=== PATIENT | female | born 1960 | race Caucasian/White ===

== ENCOUNTER 2016-09-05 22:08 | Observation (INO) | payer MEDICARE, MEDICAID ==
[~2016-09-05] VITALS: Ht 170.2 cm; Wt 115.1 kg
[~2016-09-05 22:08] MED LIST: ABILIFY 10MG TA10 MG PO; ABILIFY 15MG TA15 MG PO; ACTOS 15MG TAB15 MG PO; ASPIRIN 32325 MG/TAB PO; ASPIRIN E.C. 8181 MG PO; BISACODYL RC; BYETTA; CALTRATE 600600 MG PO; CEFTIN 250250 MG/TAB PO; CELEXA10 MG; CELEXA10 MG PO; CITALOPRAM20 MG PO; CLARITIN10 MG PO; COLACE 100100 MG/CAP PO; DESYREL 100MG100 MG PO; DESYREL PO; DITROPAN XL15 MG PO; EPIPEN1 MG/ML MR; FISH OIL1000 MG PO; FLONASE NASAL S16 GM NS; FLUTICASON0.05 MG/Ac NS; JANUVIA 100MG100 MG PO; KENALOG0.1% TP; LANTUS SOLOS100 U/ML SC; LANTUS100 U/ML; LEVOTHYROXINE0.05 M1 PO; LIPITOR 80MG80 MG PO; LIPITOR80 MG PO; LISINOPRIL5 MG PO; LITHIUM 30300 MG/CAP PO; LITHIUM 60600 MG/CAP PO; MACROBID 1100 MG/CAP PO; MACRODANTIN50 MG/CA1 PO; METAMUCIL1 PDR PO; METFORMIN1000 MG PO; MIRTAZAPINE15 M1 PO; NIASPAN 500MG500 MG PO; NOVOLOG 100U100 U/M1 SC; OMEPRAZOLE20 MG PO; OXYBUTYNIN10 MG PO; OXYBUTYNIN5 MG PO; PRINIVIL10 MG PO; PROVERA 10MG10 MG PO; REMERON 15M15 MG/TA1 PO; REMERON 15M15 MG/TAB PO; RISPERDAL2 MG PO; SINGULAIR 110 MG/TAB PO; SYNTHROID0.05 MG PO; SYNTHROID0.075 MG/T PO; TOFRANIL 25MG T25 MG PO; TRAZODONE150 MG PO; TRICOR145 MG PO; VESICARE PO; VITAMIN D2000 I1 PO; VITAMIN D32000 IU PO
[2016-09-05] MEDS ORDERED: LIPITOR 40MG TA40 MG PO (22:17)
[2016-09-05] MEDS ORDERED: GLUCOPHAGE500 MG/TAB PO (22:18)
[2016-09-05 23:02] LABS: BASO % 0.3 % (0.0-2.0); EOS # 0.1 (0.0-0.7); EOS % 0.8 % (0-4.0); GRAN # 5.3 (1.4-6.5); GRAN % 75.2 % (42.2-75.2); HEMATOCRIT 39.7 % (37.0-47.0); LYMPH # 1.2 (1.2-3.4); LYMPH % 16.2 % (20.0-51.0); MEAN CELL VOLUME 90 fl (80.0-100.0); MEAN CORPUSCULAR HEMOGLOBIN 27 pg (27.0-31.0); MEAN CORPUSCULAR HGB CONC 30 g/dl (33.0-37.0); MEAN PLATELET VOLUME 10.3 fl (7.4-10.4); MONO # 0.5 (0.1-0.6); MONO % 7.2 % (1.7-9.3); PLATELET COUNT 300 K/mm3 (130-400); RED BLOOD COUNT 4.43 M/mm3 (4.10-5.30); REDCELL DISTRIBUTION WIDTH-CV 14.9 % (11.5-14.5); WHITE BLOOD COUNT 7.1 K/mm3 (4.8-10.8)
[2016-09-05 23:09] LABS: ADJUSTED CALCIUM 10.5 mg/dL (8.4-10.2); ALBUMIN 4.1 gm/dL (3.5-5.0); BILIRUBIN,TOTAL 1.1 mg/dL (0.0-1.0); CALCIUM 10.6 mg/dL (8.4-10.2); CREATININE, serum 1.1 mg/dL (0.52-1.25); MAGNESIUM 2.1 mg/dL (1.6-2.3); PHOSPHOROUS 3.7 mg/dL (2.5-4.5); POTASSIUM 4.2 mmol/L (3.4-5.0); TOTAL PROTEIN 7.4 gm/dL (6.4-8.2)
[2016-09-05 23:13] LABS: PH 5 (5-8); SQUAMOUS EPITHELIAL None Seen /hpf; URINE APPEARANCE Cloudy; URINE BACTERIA Rare /hpf; URINE BILIRUBIN Negative (NEGATIVE); URINE BLOOD Negative (NEGATIVE); URINE COLOR Yellow; URINE GLUCOSE 3+ (NEGATIVE); URINE KETONE Negative (NEGATIVE); URINE UROBILINOGEN Negative (NEGATIVE); URINE WBC >50 /hpf
[2016-09-05] MEDS ORDERED: OMNICEF 300MG300 MG PO (23:38)
[2016-09-05 23:39] LABS: THYROID STIMULATING HORMONE 2.51 uIU/mL (0.465-4.680)
[2016-09-06] VITALS (8 sets, daily range): BP systolic 106–135; BP diastolic 59–77; PULSE 71–105; TEMP 97.7–99.5
[2016-09-06] MEDS ORDERED: CLARITIN 1010 MG/TAB PO (00:26)
[2016-09-06] MEDS ORDERED: GLUCOPHAGE XR750 MG PO (00:27)
[2016-09-06] MEDS ORDERED: LIPITOR 40MG TA40 MG PO (00:27)
[2016-09-06] MEDS ORDERED: DITROPAN XL15 MG PO (00:27)
[2016-09-06] MEDS ORDERED: TRICOR145 MG PO (00:28)
[2016-09-06] MEDS ORDERED: PRILOSEC 20MG20 MG PO (00:28)
[2016-09-06] MEDS ORDERED: ABILIFY20 MG PO (00:28)
[2016-09-06] MEDS ORDERED: VITAMIN D32000 IU PO (00:29)
[2016-09-06] MEDS ORDERED: CELEXA 20MG20 MG/TAB PO (00:29)
[2016-09-06] MEDS ORDERED: SYNTHROID0.075 MG/T PO (00:29)
[2016-09-06] MEDS ORDERED: ESKALITH C450 MG/TAB PO (00:30)
[2016-09-06] MEDS ORDERED: SINGULAIR 110 MG/TAB PO (00:30)
[2016-09-06] MEDS ORDERED: REMERON 15M15 MG/TA1 PO (00:46)
[2016-09-06] MEDS ORDERED: PROVERA 10MG10 MG PO (00:47)
[2016-09-06] MEDS ORDERED: DULCOLAX STOOL100 MG PO (00:47)
[2016-09-06] MEDS ORDERED: CALCIUM 600-D 61 TAB PO (00:47)
[2016-09-06] MEDS ORDERED: ASPIRIN E.C. 8181 MG PO (00:47)
[2016-09-06] MEDS ORDERED: CANA100T PO (00:48)
[2016-09-06] MEDS ORDERED: PRINIVIL10 MG PO (00:48)
[2016-09-06] MEDS ORDERED: FLONASEALLERGY NS (01:29)
[2016-09-06] MEDS ORDERED: INSLANT SQ (01:31)
[2016-09-06] MEDS ORDERED: FIBERCON PO (01:35)
[2016-09-06] MEDS ORDERED: RISPERDAL2 MG PO (01:36)
[2016-09-06] MEDS ORDERED: DESYREL 100MG100 MG PO (01:37)
[2016-09-06] MEDS ORDERED: TYLENOL 325MG325 MG PO (01:38)
[2016-09-07 03:27] VITALS: BP 116/69; PULSE 81; TEMP 99
[2016-09-07 07:53] VITALS: BP 154/76; PULSE 87; TEMP 99.4
[2016-09-07 08:06] LABS: CALCIUM 10.7 mg/dL (8.4-10.2); CREATININE, serum 0.93 mg/dL (0.52-1.25); MAGNESIUM 2.2 mg/dL (1.6-2.3); POTASSIUM 4.4 mmol/L (3.4-5.0)
[2016-09-07 11:27] VITALS: BP 142/88; PULSE 79; TEMP 97.4
[2016-09-07 15:19] VITALS: BP 142/58; PULSE 89; TEMP 98
[2016-09-07 19:59] VITALS: BP 115/78; PULSE 71; TEMP 97.8
[2016-09-07 23:04] VITALS: BP 120/75; PULSE 75; TEMP 98.2
[2016-09-08 03:37] VITALS: BP 119/78; PULSE 96; TEMP 98.4
[2016-09-08 08:40] VITALS: BP 146/81; PULSE 85; TEMP 98.3
[2016-09-08] MEDS ORDERED: CEFTIN500 MG PO (09:44)
[2016-09-08] MEDS ORDERED: RISPERDAL4 MG PO (09:45)
[2016-09-08] MEDS ORDERED: RISPERDAL 0.5M0.5 MG PO (09:45)
[2016-09-08] MEDS ORDERED: LITHIUM CA150 MG/CAP PO (09:46)
[2016-09-08] MEDS ORDERED: LEVEMIR FLEX100 U/ML SQ (09:47)
[2016-09-08 11:55] VITALS: BP 119/93; PULSE 97; TEMP 98.3
== END 2016-09-08 22:05 ==
LOC: COL.ER 22:08 → MEDICAL 09-06 00:03
PROVIDERS: Emergency Medicine; Internal Medicine
DX: N39.0 Urinary tract infection, site not specified (principal); B96.1 Klebsiella pneumoniae [K. pneumoniae] as the cause of diseases classified elsewhere; F25.0 Schizoaffective disorder, bipolar type; R41.0 Disorientation, unspecified; R41.82 Altered mental status, unspecified; I10 Essential (primary) hypertension; E11.9 Type 2 diabetes mellitus without complications; E78.5 Hyperlipidemia, unspecified; E03.9 Hypothyroidism, unspecified; Z79.84 Long term (current) use of oral hypoglycemic drugs; Z79.4 Long term (current) use of insulin
CPT/HCPCS: 90791-AI; 99232-AI; G0378; G8978-GP; G8979-GP; G8987-GO; G8988-GO; G9168-GN; G9169-GN; J0696; J1650; J1815; J7030

== ENCOUNTER → 2017-01-15 | Outpatient (CLI) | payer MEDICARE, MEDICAID ==
[~2017-01-15] MED LIST changes: +ABILIFY20 MG PO; +CALCIUM 600-D 61 TAB PO; +CANA100T PO; +CEFTIN500 MG PO; +CELEXA 20MG20 MG/TAB PO; +CLARITIN 1010 MG/TAB PO; +DULCOLAX STOOL100 MG PO; +ESKALITH C450 MG/TAB PO; +FIBERCON PO; +FLONASEALLERGY NS; +GLUCOPHAGE XR750 MG PO; +GLUCOPHAGE500 MG/TAB PO; +INSLANT SQ; +LEVEMIR FLEX100 U/ML SQ; +LIPITOR 40MG TA40 MG PO; +LITHIUM CA150 MG/CAP PO; +OMNICEF 300MG300 MG PO; +PRILOSEC 20MG20 MG PO; +RISPERDAL 0.5M0.5 MG PO; +RISPERDAL4 MG PO; +TYLENOL 325MG325 MG PO
== END ==
LOC: MC.RAD 13:58
DX: Z12.31 Encounter for screening mammogram for malignant neoplasm of breast (principal)

== ENCOUNTER → 2017-04-09 | Outpatient (CLI) | payer MEDICARE, MEDICAID | LOC: SUN.DIA 08:36 | DX: E11.9 Type 2 diabetes mellitus without complications (principal); Z79.4 Long term (current) use of insulin; E78.5 Hyperlipidemia, unspecified; I10 Essential (primary) hypertension; E66.9 Obesity, unspecified; Z68.34 Body mass index [BMI] 34.0-34.9, adult; Z71.3 Dietary counseling and surveillance | CPT/HCPCS: G0108 ==

== ENCOUNTER → 2017-05-03 | Outpatient (CLI) | payer MEDICARE, MEDICAID | LOC: SUN.DIA 09:03 | DX: E11.9 Type 2 diabetes mellitus without complications (principal); Z79.4 Long term (current) use of insulin; E78.5 Hyperlipidemia, unspecified; I10 Essential (primary) hypertension; E66.9 Obesity, unspecified; Z68.34 Body mass index [BMI] 34.0-34.9, adult; Z71.3 Dietary counseling and surveillance ==

== ENCOUNTER → 2017-06-28 | Outpatient (CLI) | payer MEDICARE, MEDICAID | LOC: SUN.DIA 05-24 09:05 | DX: E11.9 Type 2 diabetes mellitus without complications (principal); Z79.4 Long term (current) use of insulin; E78.5 Hyperlipidemia, unspecified; I10 Essential (primary) hypertension; E66.9 Obesity, unspecified; Z68.34 Body mass index [BMI] 34.0-34.9, adult; Z71.3 Dietary counseling and surveillance ==

== ENCOUNTER 2017-08-16 00:49 | Emergency (ER) | payer MEDICARE, MEDICAID ==
[2008-10-16 17:36] VITALS: BP 118/70
[~2017-08-16] VITALS: Ht 170.2 cm; Wt 99.5 kg
[2017-08-16 00:51] VITALS: BP 129/73; TEMP 98.1
[2017-08-16] MEDS ORDERED: NOVOLOG FLEX100 U/ML SQ (00:57)
[2017-08-16] MEDS ORDERED: CIPRO 500MG TA500 MG PO (02:23)
[2017-08-16] MEDS ORDERED: MACRODANTIN50 MG/CA1 PO (02:23)
[2017-08-16 02:55] VITALS: PULSE 88
== END 2017-08-16 02:55 | disposition home or self-care (01) ==
LOC: COL.ER 00:49
DX: S83.92XA Sprain of unspecified site of left knee, initial encounter (principal); I10 Essential (primary) hypertension; E11.9 Type 2 diabetes mellitus without complications; F32.9 Major depressive disorder, single episode, unspecified; Z79.4 Long term (current) use of insulin; Z79.82 Long term (current) use of aspirin; W01.0XXA Fall on same level from slipping, tripping and stumbling without subsequent striking against object, initial encounter
CPT/HCPCS: L1830

== ENCOUNTER → 2017-08-20 | Outpatient (CLI) | payer MEDICARE, MEDICAID ==
[~2017-08-20] MED LIST changes: +CIPRO 500MG TA500 MG PO; +NOVOLOG FLEX100 U/ML SQ
== END ==
LOC: SUN.DIA 13:50
DX: E11.9 Type 2 diabetes mellitus without complications (principal); Z79.4 Long term (current) use of insulin; E78.5 Hyperlipidemia, unspecified; I10 Essential (primary) hypertension; E66.9 Obesity, unspecified; Z68.32 Body mass index [BMI] 32.0-32.9, adult; Z71.3 Dietary counseling and surveillance
CPT/HCPCS: G0108

== ENCOUNTER → 2017-10-29 | Outpatient (CLI) | payer MEDICARE, MEDICAID | LOC: SUN.DIA 10-01 10:36 | DX: E11.9 Type 2 diabetes mellitus without complications (principal); Z79.4 Long term (current) use of insulin; E78.5 Hyperlipidemia, unspecified; I10 Essential (primary) hypertension; E66.9 Obesity, unspecified; Z68.34 Body mass index [BMI] 34.0-34.9, adult; Z71.3 Dietary counseling and surveillance | CPT/HCPCS: G0108 ==

== ENCOUNTER 2017-12-10 17:15 | Emergency (ER) | payer MEDICARE, MEDICAID ==
[2008-10-16 17:36] VITALS: BP 118/70
[~2017-12-10] VITALS: Ht 170.2 cm; Wt 100.9 kg
[2017-12-10 17:17] VITALS: TEMP 98.1
[2017-12-10 18:25] LABS: COLLECTION METHOD CLEAN CATCH
[2017-12-10] MEDS ORDERED: NIZORAL CREAM15 GM TP (18:25)
[2017-12-10 18:27] VITALS: BP 130/82; PULSE 98
[2017-12-10 18:49] LABS: PH 5 (5-8); SQUAMOUS EPITHELIAL None Seen /hpf; URINE APPEARANCE Clear; URINE BACTERIA None Seen /hpf; URINE BILIRUBIN Negative (NEGATIVE); URINE BLOOD Negative (NEGATIVE); URINE COLOR Yellow; URINE GLUCOSE Negative (NEGATIVE); URINE KETONE Trace (NEGATIVE); URINE LEUKOCYTE ESTERASE Negative (NEGATIVE); URINE NITRATE Negative (NEGATIVE); URINE PROTEIN(semi-quant) Negative (NEGATIVE); URINE RBC 0-2 /hpf; URINE UROBILINOGEN Negative (NEGATIVE)
== END 2017-12-10 18:57 | disposition home or self-care (01) ==
LOC: COL.ER 17:15
PROVIDERS: Family Medicine
DX: B37.2 Candidiasis of skin and nail (principal); E11.9 Type 2 diabetes mellitus without complications; Z98.890 Other specified postprocedural states; Z79.4 Long term (current) use of insulin

== ENCOUNTER 2018-02-22 21:09 | Emergency (ER) | payer MEDICARE, MEDICAID ==
[2008-10-16 17:36] VITALS: BP 118/70
[~2018-02-22] VITALS: Ht 170.2 cm; Wt 90.9 kg
[~2018-02-22 21:09] MED LIST changes: +NIZORAL CREAM15 GM TP
[2018-02-22 21:12] VITALS: BP 143/82; TEMP 97.4
[2018-02-22 21:41] LABS: COLLECTION METHOD CATHETER
[2018-02-22 21:46] LABS: PH 6 (5-8); SQUAMOUS EPITHELIAL None Seen /hpf; URINE APPEARANCE Clear; URINE BACTERIA None Seen /hpf; URINE BILIRUBIN Negative (NEGATIVE); URINE BLOOD Negative (NEGATIVE); URINE COLOR Straw; URINE GLUCOSE Negative (NEGATIVE); URINE KETONE Negative (NEGATIVE); URINE LEUKOCYTE ESTERASE 2+ (NEGATIVE); URINE NITRATE Negative (NEGATIVE); URINE PROTEIN(semi-quant) Negative (NEGATIVE); URINE RBC 0-2 /hpf; URINE UROBILINOGEN Negative (NEGATIVE)
[2018-02-23 00:45] VITALS: PULSE 102
== END 2018-02-23 00:45 | disposition home or self-care (01) ==
LOC: COL.ER 21:09
PROVIDERS: Emergency Medicine
DX: K59.00 Constipation, unspecified (principal); E11.9 Type 2 diabetes mellitus without complications; I10 Essential (primary) hypertension; E03.9 Hypothyroidism, unspecified; E78.5 Hyperlipidemia, unspecified; F25.9 Schizoaffective disorder, unspecified; Z79.82 Long term (current) use of aspirin; Z79.4 Long term (current) use of insulin

== ENCOUNTER 2018-02-26 00:33 | Inpatient (IN) | payer MEDICARE, MEDICAID ==
[~2018-02-26] VITALS: Ht 170.2 cm; Wt 96.8 kg
[2018-02-26 00:59] LABS: BASO % 0.4 % (0.0-2.0); EOS # 0.1 (0.0-0.7); EOS % 0.8 % (0-4.0); GRAN # 8.8 (1.4-6.5); GRAN % 78.4 % (42.2-75.2); HEMATOCRIT 36.1 % (37.0-47.0); HEMOGLOBIN 12.1 g/dl (12.5-16.0); LYMPH # 1.7 (1.2-3.4); LYMPH % 14.9 % (20.0-51.0); MEAN CELL VOLUME 82 fl (80.0-100.0); MEAN CORPUSCULAR HEMOGLOBIN 28 pg (27.0-31.0); MEAN CORPUSCULAR HGB CONC 34 g/dl (33.0-37.0); MEAN PLATELET VOLUME 10.3 fl (7.4-10.4); MONO # 0.6 (0.1-0.6); MONO % 5.1 % (1.7-9.3); PLATELET COUNT 265 K/mm3 (130-400); RED BLOOD COUNT 4.38 M/mm3 (4.10-5.30); REDCELL DISTRIBUTION WIDTH-CV 13.6 % (11.5-14.5)
[2018-02-26 01:05] LABS: COLLECTION METHOD CATHETER
[2018-02-26 01:07] LABS: ALBUMIN 3.7 gm/dL (3.5-5.0); BILIRUBIN,TOTAL 1.4 mg/dL (0.0-1.0); CALCIUM 8.4 mg/dL (8.4-10.2); CREATININE, serum 0.55 mg/dL (0.52-1.25); MAGNESIUM 1.2 mg/dL (1.6-2.3); PHOSPHOROUS 2.5 mg/dL (2.5-4.5); POTASSIUM 3.9 mmol/L (3.4-5.0); TOTAL PROTEIN 6.3 gm/dL (6.4-8.2)
[2018-02-26 01:10] LABS: PH 6 (5-8); SQUAMOUS EPITHELIAL None Seen /hpf; URINE APPEARANCE Clear; URINE BACTERIA None Seen /hpf; URINE BILIRUBIN Negative (NEGATIVE); URINE BLOOD Negative (NEGATIVE); URINE COLOR Colorless; URINE GLUCOSE 1+ (NEGATIVE); URINE KETONE Negative (NEGATIVE); URINE LEUKOCYTE ESTERASE 2+ (NEGATIVE); URINE NITRATE Negative (NEGATIVE); URINE PROTEIN(semi-quant) Negative (NEGATIVE); URINE RBC 0-2 /hpf; URINE UROBILINOGEN Negative (NEGATIVE)
[2018-02-26 01:19] LABS: TROPONIN-I 0.464 ng/mL (0.000-0.034)
[2018-02-26] MEDS ORDERED: RISPERDAL2 MG PO (01:39)
[2018-02-26 01:40] LABS: THYROID STIMULATING HORMONE 0.926 uIU/mL (0.465-4.680)
[2018-02-26 04:26] LABS: CALCIUM 8.6 mg/dL (8.4-10.2); CREATININE, serum 0.59 mg/dL (0.52-1.25)
[2018-02-26 05:12] VITALS: BP 107/58; PULSE 96; TEMP 97.6
[2018-02-26] MEDS ORDERED: PRINIVIL2.5 MG PO (06:11)
[2018-02-26 07:47] LABS: CREATININE, serum 0.55 mg/dL (0.52-1.25); POTASSIUM 4.3 mmol/L (3.4-5.0)
[2018-02-26 08:08] VITALS: BP 92/42; PULSE 87; TEMP 97.6
[2018-02-26 10:42] LABS: CALCIUM 9.1 mg/dL (8.4-10.2); CREATININE, serum 0.55 mg/dL (0.52-1.25); POTASSIUM 4.6 mmol/L (3.4-5.0)
[2018-02-26 12:35] VITALS: BP 92/58; PULSE 88; TEMP 97.6
[2018-02-26 13:40] LABS: CALCIUM 9.4 mg/dL (8.4-10.2); CREATININE, serum 0.59 mg/dL (0.52-1.25); POTASSIUM 4.8 mmol/L (3.4-5.0)
[2018-02-26 15:47] VITALS: BP 98/56; PULSE 80; TEMP 97.5
[2018-02-26 16:18] LABS: CALCIUM 9.3 mg/dL (8.4-10.2); CREATININE, serum 0.6 mg/dL (0.52-1.25); POTASSIUM 4.5 mmol/L (3.4-5.0)
[2018-02-26 19:50] VITALS: BP 108/78; PULSE 80; TEMP 98.3
[2018-02-26 20:08] LABS: CALCIUM 9.5 mg/dL (8.4-10.2); CREATININE, serum 0.67 mg/dL (0.52-1.25); POTASSIUM 4.1 mmol/L (3.4-5.0)
[2018-02-26 22:18] LABS: CALCIUM 9.5 mg/dL (8.4-10.2); CREATININE, serum 0.71 mg/dL (0.52-1.25); POTASSIUM 4.2 mmol/L (3.4-5.0)
[2018-02-26 23:43] VITALS: BP 105/61; PULSE 81; TEMP 98.2
[2018-02-27] VITALS (7 sets, daily range): BP systolic 89–111; BP diastolic 46–67; PULSE 71–78; TEMP 97.8–98.5
[2018-02-27 01:36] LABS: CALCIUM 9.5 mg/dL (8.4-10.2); CREATININE, serum 0.76 mg/dL (0.52-1.25); POTASSIUM 4.3 mmol/L (3.4-5.0)
[2018-02-27 04:18] LABS: BASO % 0.5 % (0.0-2.0); EOS # 0.1 (0.0-0.7); EOS % 0.9 % (0-4.0); GRAN # 4.6 (1.4-6.5); HEMOGLOBIN 12.1 g/dl (12.5-16.0); LYMPH # 1.2 (1.2-3.4); LYMPH % 17.8 % (20.0-51.0); MEAN CORPUSCULAR HEMOGLOBIN 28 pg (27.0-31.0); MEAN CORPUSCULAR HGB CONC 33 g/dl (33.0-37.0); MEAN PLATELET VOLUME 10.6 fl (7.4-10.4); MONO # 0.7 (0.1-0.6); MONO % 10.6 % (1.7-9.3); PLATELET COUNT 219 K/mm3 (130-400); RED BLOOD COUNT 4.26 M/mm3 (4.10-5.30); REDCELL DISTRIBUTION WIDTH-CV 13.9 % (11.5-14.5)
[2018-02-27 04:25] LABS: MEAN CELL VOLUME 87 fl (80.0-100.0)
[2018-02-27 04:29] LABS: CALCIUM 9.6 mg/dL (8.4-10.2); CREATININE, serum 0.71 mg/dL (0.52-1.25); POTASSIUM 4.4 mmol/L (3.4-5.0)
[2018-02-27 04:41] LABS: MAGNESIUM 1.8 mg/dL (1.6-2.3)
[2018-02-27 07:37] LABS: CALCIUM 9.7 mg/dL (8.4-10.2); CREATININE, serum 0.69 mg/dL (0.52-1.25); POTASSIUM 4.5 mmol/L (3.4-5.0)
[2018-02-27 10:47] LABS: CALCIUM 9.7 mg/dL (8.4-10.2); CREATININE, serum 0.67 mg/dL (0.52-1.25); POTASSIUM 4.9 mmol/L (3.4-5.0)
[2018-02-27 14:13] LABS: CALCIUM 9.9 mg/dL (8.4-10.2); CREATININE, serum 0.69 mg/dL (0.52-1.25); POTASSIUM 4.2 mmol/L (3.4-5.0)
[2018-02-28] VITALS (15 sets, daily range): BP systolic 91–124; BP diastolic 49–93; PULSE 60–88; TEMP 97.4–98.3
[2018-02-28 06:45] LABS: BASO % 0.6 % (0.0-2.0); EOS # 0.1 (0.0-0.7); EOS % 2.3 % (0-4.0); GRAN % 56.2 % (42.2-75.2); HEMATOCRIT 37.2 % (37.0-47.0); HEMOGLOBIN 11.8 g/dl (12.5-16.0); LYMPH # 1.5 (1.2-3.4); LYMPH % 28.9 % (20.0-51.0); MEAN CELL VOLUME 87 fl (80.0-100.0); MEAN CORPUSCULAR HEMOGLOBIN 28 pg (27.0-31.0); MEAN CORPUSCULAR HGB CONC 32 g/dl (33.0-37.0); MEAN PLATELET VOLUME 10.6 fl (7.4-10.4); MONO # 0.6 (0.1-0.6); MONO % 11.8 % (1.7-9.3); PLATELET COUNT 243 K/mm3 (130-400); RED BLOOD COUNT 4.28 M/mm3 (4.10-5.30); REDCELL DISTRIBUTION WIDTH-CV 14.2 % (11.5-14.5)
[2018-02-28 06:53] LABS: PROTHROMBIN TIME 11.8 SECONDS (9.7-12.8)
[2018-02-28 06:54] LABS: CREATININE, serum 0.72 mg/dL (0.52-1.25); POTASSIUM 4.2 mmol/L (3.4-5.0)
[2018-02-28] MEDS ORDERED: PLAVIX 75MG TAB75 MG PO (16:29)
[2018-03-01 04:34] VITALS: BP 108/62; PULSE 68; TEMP 98.2
[2018-03-01 08:13] VITALS: BP 97/55; PULSE 81; TEMP 97.9
[2018-03-01 08:37] LABS: CALCIUM 9.1 mg/dL (8.4-10.2); CREATININE, serum 0.71 mg/dL (0.52-1.25); MAGNESIUM 1.7 mg/dL (1.6-2.3)
[2018-03-01] MEDS ORDERED: COREG 3.123.125 MG/T PO (11:45)
[2018-03-01 12:23] VITALS: BP 106/52; PULSE 69; TEMP 98.8
== END 2018-03-01 14:20 | disposition home health service (06) | DRG 640 ==
LOC: COL.ER 00:33 → SURG 02:24
PROVIDERS: Emergency Medicine; Internal Medicine Cardiovascular Disease; Nurse Practitioner Family; Physician Assistant
PROC: B2111ZZ Fluoroscopy of Multiple Coronary Arteries using Low Osmolar Contrast (ICD-10-PCS; principal; 2018-02-28)
PROC: B2151ZZ Fluoroscopy of Left Heart using Low Osmolar Contrast (ICD-10-PCS; 2018-02-28)
PROC: 4A023N7 Measurement of Cardiac Sampling and Pressure, Left Heart, Percutaneous Approach (ICD-10-PCS; 2018-02-28)
DX: E87.1 Hypo-osmolality and hyponatremia (principal); I21.A1 Myocardial infarction type 2; I50.23 Acute on chronic systolic (congestive) heart failure; I42.9 Cardiomyopathy, unspecified; I51.81 Takotsubo syndrome; I11.0 Hypertensive heart disease with heart failure; F25.9 Schizoaffective disorder, unspecified; E78.5 Hyperlipidemia, unspecified; E11.9 Type 2 diabetes mellitus without complications; Z79.4 Long term (current) use of insulin; E83.42 Hypomagnesemia; E87.8 Other disorders of electrolyte and fluid balance, not elsewhere classified
CPT/HCPCS: 99223-AI; 99233-AI; 99239; A9502; C1769; C1887; J1200; J1644; J1650; J1815; J2250; J3010; J3475; J7040; Q9967

== ENCOUNTER → 2018-03-12 | Outpatient (CLI) | payer MEDICARE, MEDICAID ==
[~2018-03-12] MED LIST changes: +COREG 3.123.125 MG/T PO; +PLAVIX 75MG TAB75 MG PO; +PRINIVIL2.5 MG PO
== END ==
LOC: SUN.DIA
DX: E11.9 Type 2 diabetes mellitus without complications (principal); E78.5 Hyperlipidemia, unspecified; I10 Essential (primary) hypertension; E66.9 Obesity, unspecified
CPT/HCPCS: G0108

== ENCOUNTER 2018-03-21 18:29 | Emergency (ER) | payer MEDICARE, MEDICAID ==
[2008-10-16 17:36] VITALS: BP 118/70
[~2018-03-21] VITALS: Ht 170.2 cm; Wt 95.5 kg
[2018-03-21 18:55] LABS: COLLECTION METHOD CLEAN CATCH
[2018-03-21 19:06] LABS: PH 7 (5-8); SQUAMOUS EPITHELIAL 0-2 /hpf; URINE APPEARANCE Hazy; URINE BACTERIA Moderate /hpf; URINE BILIRUBIN Negative (NEGATIVE); URINE BLOOD 1+ (NEGATIVE); URINE COLOR Straw; URINE GLUCOSE Negative (NEGATIVE); URINE KETONE Negative (NEGATIVE); URINE LEUKOCYTE ESTERASE 3+ (NEGATIVE); URINE NITRATE Negative (NEGATIVE); URINE PROTEIN(semi-quant) Negative (NEGATIVE); URINE RBC 0-2 /hpf; URINE UROBILINOGEN Negative (NEGATIVE)
[2018-03-21 19:09] LABS: TRICYCLIC ANTIDEPRESS URINE NEGATIVE
[2018-03-21 19:17] LABS: BASO % 0.4 % (0.0-2.0); EOS # 0.1 (0.0-0.7); EOS % 0.9 % (0-4.0); GRAN # 5.4 (1.4-6.5); GRAN % 70.5 % (42.2-75.2); HEMOGLOBIN 13.4 g/dl (12.5-16.0); LYMPH # 1.5 (1.2-3.4); MEAN CELL VOLUME 84 fl (80.0-100.0); MEAN CORPUSCULAR HEMOGLOBIN 28 pg (27.0-31.0); MEAN CORPUSCULAR HGB CONC 34 g/dl (33.0-37.0); MEAN PLATELET VOLUME 9.8 fl (7.4-10.4); MONO # 0.6 (0.1-0.6); MONO % 7.9 % (1.7-9.3); PLATELET COUNT 254 K/mm3 (130-400); RED BLOOD COUNT 4.76 M/mm3 (4.10-5.30); REDCELL DISTRIBUTION WIDTH-CV 13.4 % (11.5-14.5)
[2018-03-21 19:27] LABS: ALANINE AMINOTRANSFERASE 34 U/L (9-52); ALKALINE PHOSPHATASE 82 U/L (50-136); ANION GAP 13 mmol/L (7-16); AST,SGOT 22 U/L (15-37); BILIRUBIN,TOTAL 1.9 mg/dL (0.0-1.0); BLOOD UREA NITROGEN 11 mg/dL (7-17); CALCIUM 9.2 mg/dL (8.4-10.2); CARBON DIOXIDE 22 mmol/L (22-30); CHLORIDE 92 mmol/L (98-107); CREATININE, serum 0.63 mg/dL (0.52-1.25); GLUCOSE 109 mg/dL (74-106); POTASSIUM 3.6 mmol/L (3.4-5.0); SODIUM 126 mmol/L (137-145); TOTAL PROTEIN 6.7 gm/dL (6.4-8.2)
[2018-03-21 19:43] LABS: ACETAMINOPHEN < 10 ug/mL (10-30); ALCOHOL(ethanol),MEDICAL < 10 mg/dL; SALICYLATE < 1.0 mg/dL
[2018-03-22 07:44] LABS: CALCIUM 9.7 mg/dL (8.4-10.2); CREATININE, serum 0.61 mg/dL (0.52-1.25); POTASSIUM 4.1 mmol/L (3.4-5.0)
[2018-03-22 08:30] VITALS: TEMP 97.8
[2018-03-22 14:35] VITALS: BP 99/58; PULSE 75
== END 2018-03-22 15:35 ==
LOC: COL.ER 18:29
PROVIDERS: Emergency Medicine
DX: F32.9 Major depressive disorder, single episode, unspecified (principal); R45.851 Suicidal ideations; E87.1 Hypo-osmolality and hyponatremia; N39.0 Urinary tract infection, site not specified; F25.9 Schizoaffective disorder, unspecified; E11.9 Type 2 diabetes mellitus without complications; I10 Essential (primary) hypertension; Z79.4 Long term (current) use of insulin; Z79.02 Long term (current) use of antithrombotics/antiplatelets; Z79.82 Long term (current) use of aspirin
CPT/HCPCS: J7030

== ENCOUNTER 2018-09-14 13:53 | Emergency (ER) | payer MEDICARE, MEDICAID ==
[2008-10-16 17:36] VITALS: BP 118/70
[~2018-09-14] VITALS: Ht 170.2 cm; Wt 95.5 kg
[2018-09-14 14:02] VITALS: TEMP 97.1
[2018-09-14 14:36] LABS: BASO # 0.1 (0.0-0.2); BASO % 0.6 % (0.0-2.0); EOS # 0.1 (0.0-0.7); EOS % 1.1 % (0-4.0); GRAN # 6.9 (1.4-6.5); GRAN % 73.7 % (42.2-75.2); HEMATOCRIT 41.8 % (37.0-47.0); HEMOGLOBIN 13.7 g/dl (12.5-16.0); LYMPH # 1.7 (1.2-3.4); LYMPH % 18.3 % (20.0-51.0); MEAN CELL VOLUME 84 fl (80.0-100.0); MEAN CORPUSCULAR HEMOGLOBIN 28 pg (27.0-31.0); MEAN CORPUSCULAR HGB CONC 33 g/dl (33.0-37.0); MEAN PLATELET VOLUME 9.6 fl (7.4-10.4); MONO # 0.6 (0.1-0.6); MONO % 6.1 % (1.7-9.3); PLATELET COUNT 297 K/mm3 (130-400); RED BLOOD COUNT 4.97 M/mm3 (4.10-5.30); REDCELL DISTRIBUTION WIDTH-CV 13.9 % (11.5-14.5)
[2018-09-14 14:43] LABS: COLLECTION METHOD CLEAN CATCH
[2018-09-14 14:47] LABS: ALBUMIN 4.3 gm/dL (3.5-5.0); BILIRUBIN,TOTAL 0.7 mg/dL (0.0-1.0); CALCIUM 9.3 mg/dL (8.4-10.2); CREATININE, serum 0.57 mg/dL (0.52-1.25); POTASSIUM 4.2 mmol/L (3.4-5.0); TOTAL PROTEIN 7.1 gm/dL (6.4-8.2)
[2018-09-14 14:53] LABS: PH 7 (5-8); URINE APPEARANCE Hazy; URINE BACTERIA Many /hpf; URINE BILIRUBIN Negative (NEGATIVE); URINE BLOOD 1+ (NEGATIVE); URINE COLOR Straw; URINE GLUCOSE Negative (NEGATIVE); URINE KETONE Negative (NEGATIVE); URINE LEUKOCYTE ESTERASE 3+ (NEGATIVE); URINE NITRATE Negative (NEGATIVE); URINE PROTEIN(semi-quant) Negative (NEGATIVE); URINE UROBILINOGEN Negative (NEGATIVE); URINE WBC >50 /hpf
[2018-09-14] MEDS ORDERED: GLUCOPHAGE XR750 MG PO (15:07)
[2018-09-14] MEDS ORDERED: LIPITOR 40MG TA40 MG PO (15:07)
[2018-09-14] MEDS ORDERED: PRILOSEC 20MG20 MG PO (15:08)
[2018-09-14] MEDS ORDERED: DITROPAN XL15 MG PO (15:08)
[2018-09-14] MEDS ORDERED: MASON NATURAL2000 IU PO (15:09)
[2018-09-14] MEDS ORDERED: SYNTHROID0.075 MG/T PO (15:09)
[2018-09-14] MEDS ORDERED: REMERON 15M15 MG/TA1 PO (15:10)
[2018-09-14] MEDS ORDERED: ASPIRIN E.C. 8181 MG PO (15:10)
[2018-09-14] MEDS ORDERED: DULCOLAX STOOL100 MG PO (15:11)
[2018-09-14] MEDS ORDERED: RISPERDAL 1M1 MG/TAB PO (15:12)
[2018-09-14] MEDS ORDERED: CALCIUM 600/VIT1 CAP PO (15:12)
[2018-09-14] MEDS ORDERED: ZESTRIL2.5 MG PO (15:13)
[2018-09-14] MEDS ORDERED: CEFTIN 250250 MG/TAB PO (15:13)
[2018-09-14] MEDS ORDERED: RISPERDAL 0.5M0.5 MG PO (15:14)
[2018-09-14] MEDS ORDERED: B-121000 MCG PO (15:15)
[2018-09-14] MEDS ORDERED: TRILEPTAL 300M300 MG PO (15:15)
[2018-09-14 17:25] VITALS: BP 118/76; PULSE 84
== END 2018-09-14 17:30 | disposition short-term general hospital (02) ==
LOC: COL.ER 13:53
PROVIDERS: Nurse Practitioner Primary Care
DX: K56.7 Ileus, unspecified (principal); N39.0 Urinary tract infection, site not specified; E11.9 Type 2 diabetes mellitus without complications; I10 Essential (primary) hypertension; F20.9 Schizophrenia, unspecified; F32.9 Major depressive disorder, single episode, unspecified; E03.9 Hypothyroidism, unspecified; Z79.4 Long term (current) use of insulin
CPT/HCPCS: J0744; J7030

== ENCOUNTER 2018-09-27 11:32 | Emergency (ER) | payer MEDICARE, MEDICAID ==
[2008-10-16 17:36] VITALS: BP 118/70
[~2018-09-27] VITALS: Ht 170.2 cm; Wt 93.6 kg
[~2018-09-27 11:32] MED LIST changes: +B-121000 MCG PO; +CALCIUM 600/VIT1 CAP PO; +MASON NATURAL2000 IU PO; +PRILOTC PO; +RISPERDAL 1M1 MG/TAB PO; +TRILEPTAL 300M300 MG PO; +ZESTRIL2.5 MG PO
[2018-09-27 11:33] VITALS: TEMP 97.7
[2018-09-27] MEDS ORDERED: PRINIVIL2.5 MG PO (12:03)
[2018-09-27 12:19] LABS: COLLECTION METHOD CLEAN CATCH
[2018-09-27 12:24] LABS: PH 6 (5-8); SQUAMOUS EPITHELIAL None Seen /hpf; URINE APPEARANCE Clear; URINE BACTERIA Rare /hpf; URINE BILIRUBIN Negative (NEGATIVE); URINE BLOOD 2+ (NEGATIVE); URINE COLOR Straw; URINE GLUCOSE Negative (NEGATIVE); URINE KETONE Negative (NEGATIVE); URINE LEUKOCYTE ESTERASE Negative (NEGATIVE); URINE NITRATE Negative (NEGATIVE); URINE PROTEIN(semi-quant) Negative (NEGATIVE); URINE RBC None Seen /hpf; URINE UROBILINOGEN Negative (NEGATIVE)
[2018-09-27 13:19] LABS: ALBUMIN 4.2 gm/dL (3.5-5.0); BILIRUBIN,TOTAL 0.8 mg/dL (0.0-1.0); C-REACTIVE PROTEIN 0.7 mg/dL (0.0-0.9); CALCIUM 10.1 mg/dL (8.4-10.2); CREATININE, serum 0.65 mg/dL (0.52-1.25); POTASSIUM 4.3 mmol/L (3.4-5.0); TOTAL PROTEIN 7.2 gm/dL (6.4-8.2)
[2018-09-27 13:21] LABS: HEMATOCRIT 43.2 % (37.0-47.0); HEMOGLOBIN 13.9 g/dl (12.5-16.0); MEAN CELL VOLUME 84 fl (80.0-100.0); MEAN CORPUSCULAR HEMOGLOBIN 27 pg (27.0-31.0); MEAN CORPUSCULAR HGB CONC 32 g/dl (33.0-37.0); MEAN PLATELET VOLUME 9.6 fl (7.4-10.4); PLATELET COUNT 240 K/mm3 (130-400); RED BLOOD COUNT 5.14 M/mm3 (4.10-5.30); REDCELL DISTRIBUTION WIDTH-CV 13.8 % (11.5-14.5)
[2018-09-27 14:18] VITALS: BP 95/71; PULSE 99
== END 2018-09-27 14:24 | disposition home or self-care (01) ==
LOC: COL.ER 11:32
PROVIDERS: Family Medicine
DX: R10.30 Lower abdominal pain, unspecified (principal); E11.9 Type 2 diabetes mellitus without complications; I10 Essential (primary) hypertension; E78.5 Hyperlipidemia, unspecified; I42.9 Cardiomyopathy, unspecified; Z79.84 Long term (current) use of oral hypoglycemic drugs; Z79.4 Long term (current) use of insulin; Z79.82 Long term (current) use of aspirin; Z79.51 Long term (current) use of inhaled steroids
CPT/HCPCS: J7030

== ENCOUNTER 2018-09-29 10:01 | Emergency (ER) | payer MEDICARE, MEDICAID ==
[~2018-09-29] VITALS: Ht 170.2 cm; Wt 93.6 kg
[2018-09-29 10:03] VITALS: TEMP 98
[2018-09-29 10:27] LABS: BASO % 0.5 % (0.0-2.0); EOS # 0.3 (0.0-0.7); EOS % 2.9 % (0-4.0); GRAN # 6.1 (1.4-6.5); GRAN % 69.8 % (42.2-75.2); HEMATOCRIT 39.2 % (37.0-47.0); HEMOGLOBIN 12.8 g/dl (12.5-16.0); LYMPH # 1.7 (1.2-3.4); MEAN CELL VOLUME 85 fl (80.0-100.0); MEAN CORPUSCULAR HEMOGLOBIN 28 pg (27.0-31.0); MEAN CORPUSCULAR HGB CONC 33 g/dl (33.0-37.0); MONO # 0.7 (0.1-0.6); MONO % 7.5 % (1.7-9.3); PLATELET COUNT 265 K/mm3 (130-400); RED BLOOD COUNT 4.63 M/mm3 (4.10-5.30); REDCELL DISTRIBUTION WIDTH-CV 14.3 % (11.5-14.5)
[2018-09-29 10:45] LABS: ALBUMIN 3.8 gm/dL (3.5-5.0); C-REACTIVE PROTEIN 1.5 mg/dL (0.0-0.9); CALCIUM 9.3 mg/dL (8.4-10.2); CREATININE, serum 0.62 mg/dL (0.52-1.25); POTASSIUM 4.1 mmol/L (3.4-5.0); TOTAL PROTEIN 6.7 gm/dL (6.4-8.2)
[2018-09-29 10:58] LABS: COLLECTION METHOD CLEAN CATCH
[2018-09-29 11:08] LABS: PH 6 (5-8); SQUAMOUS EPITHELIAL None Seen /hpf; URINE APPEARANCE Clear; URINE BACTERIA None Seen /hpf; URINE BILIRUBIN Negative (NEGATIVE); URINE BLOOD 1+ (NEGATIVE); URINE COLOR Straw; URINE GLUCOSE Negative (NEGATIVE); URINE KETONE Negative (NEGATIVE); URINE LEUKOCYTE ESTERASE Negative (NEGATIVE); URINE NITRATE Negative (NEGATIVE); URINE PROTEIN(semi-quant) Negative (NEGATIVE); URINE RBC 0-2 /hpf; URINE UROBILINOGEN Negative (NEGATIVE)
[2018-09-29 12:14] VITALS: BP 113/71; PULSE 76
== END 2018-09-29 12:30 | disposition home or self-care (01) ==
LOC: COL.ER 10:01
PROVIDERS: Family Medicine
DX: R10.9 Unspecified abdominal pain (principal); F32.9 Major depressive disorder, single episode, unspecified; I95.9 Hypotension, unspecified; Z79.84 Long term (current) use of oral hypoglycemic drugs; Z79.82 Long term (current) use of aspirin; Z79.51 Long term (current) use of inhaled steroids; Z79.4 Long term (current) use of insulin
CPT/HCPCS: J2405; J7030

== ENCOUNTER 2018-10-13 22:08 | Emergency (ER) | payer MEDICARE, MEDICAID ==
[2008-10-16 17:36] VITALS: BP 118/70
[~2018-10-13] VITALS: Ht 170.2 cm; Wt 94.5 kg
[2018-10-13 22:09] VITALS: TEMP 94.5
[2018-10-13 23:03] LABS: COLLECTION METHOD CATHETER
[2018-10-13 23:19] LABS: PH 6 (5-8); SQUAMOUS EPITHELIAL None Seen /hpf; URINE APPEARANCE Cloudy; URINE BACTERIA Moderate /hpf; URINE BILIRUBIN Negative (NEGATIVE); URINE BLOOD 2+ (NEGATIVE); URINE COLOR Yellow; URINE GLUCOSE Negative (NEGATIVE); URINE KETONE Negative (NEGATIVE); URINE LEUKOCYTE ESTERASE 3+ (NEGATIVE); URINE NITRATE Negative (NEGATIVE); URINE PROTEIN(semi-quant) Negative (NEGATIVE); URINE RBC 0-2 /hpf; URINE UROBILINOGEN Negative (NEGATIVE)
[2018-10-13] MEDS ORDERED: PYRIDIUM200 M1 PO (23:45)
[2018-10-13] MEDS ORDERED: CIPRO 500MG TA500 MG PO (23:45)
[2018-10-14 00:33] VITALS: BP 119/69; PULSE 63
== END 2018-10-14 00:36 | disposition home or self-care (01) ==
LOC: COL.ER 22:08
PROVIDERS: Emergency Medicine
DX: N39.0 Urinary tract infection, site not specified (principal); R33.9 Retention of urine, unspecified; E11.9 Type 2 diabetes mellitus without complications; I10 Essential (primary) hypertension; E78.5 Hyperlipidemia, unspecified; Z79.4 Long term (current) use of insulin; Z79.82 Long term (current) use of aspirin

== ENCOUNTER 2018-10-14 07:44 | Emergency (ER) | payer MEDICARE, MEDICAID ==
[2008-10-16 17:36] VITALS: BP 118/70
[~2018-10-14] VITALS: Ht 170.2 cm; Wt 97.7 kg
[~2018-10-14 07:44] MED LIST changes: +PYRIDIUM200 M1 PO
--- NOTE | 2018-10-14 10:27 | NUR ---
NISHA responded to ED consult and met with the patient. The patient reports that she lives alone in an apartment building in [place]. She states that she has no family that live here in town. She states that she does receive home health through [facility] and that she has a counseling case manager, Mahogany Siddiqui, from [facility]. The patient reports that she has had issues with taking care of her morel cathetar. NISHA then contacted Matthew at [facility]. Matthew reports that the patient has services for cleaning and shopping services. He states that they come out to see her four times a week. Matthew reports that the patient had home health services for morel cathetar care until urology dc'd the morel on October 10. Mathtew reports that they could start the morel cathetar care again upon discharge from the ED. NISHA then met with the patient to inform. The patient then reported that she would be interested in going to a nursing facility, if insurance would cover the stay. NISHA discussed options and presented and explained the patient choice form. The patient preferred 1) [facility]. The patient was also agreeable for NISHA to send referrals to [facility] and [facility]. The patient choice for was signed by the patient. The patient reports that if insurance does not cover, she would be comfortable going home with home health. The patient also provided NISHA with her DP-, which appoint a friend (Wilbert Stearns) and then (Juana Villanueva). NISHA attempted to contact both. NISHA left a voicemail. NISHA contacted and faxed a referral to all three facilities. Daja at [facility] reports that they do not have a bed at this time to accept the patient. Daja reports that if the patient does go home, that she could call [facility] in the next day or so, to see if a bed opens up. NISHA awaiting the screenings from [facility] and [facility]. NISHA also attempted to contact her [facility] counseling case manager, Mahogany. NISHA left a voicemail.
[2018-10-14 14:08] VITALS: TEMP 97.4
--- NOTE | 2018-10-14 15:38 | NUR ---
Bladimir, at [facility], reports that they do not have any beds available at this time. Sergey, at [facility], contacted NISHA to inform that they may be able to accept the patient. Sergey reports that she will attempt to contact the patient's wrapper caser, Mahogany, to see if she chart picker some of the patient's belongings. NISHA was able to get in contact with the patient's sister, Juana ([phone]). Juana lives in [place]. She states that the patient has a good friend, Kirti, that lives in [place]. She states that Kirti's sister, Wilbert, is the patient's other DPOA-HC. Juana reports that she will call or text Wilbert about the patient's condition. The patient's sister was in agreeance for the sister to go to a nursing facility. NISHA was also able to get in contact with the patient's wrapper caser, Mahogany. Mahogany reports that she is unsure if she would be able to go into the patient's home. Mahogany reports that she will contact the patient's DPOA-HC, Wilbert. NISHA to continue to follow. to continue to follow.
--- NOTE | 2018-10-14 17:58 | NUR ---
eSrgey, at [facility], reports that after further review, they have clinically declined the patient. NISHA then updated the patient, patient's nurse, and the patient's DPOA-HC, Pradeep. The patient and patient's DPOA-HC were comfortable with the patient returning back home with catheter care from her home health agency. NISHA student then contacted and faxed the referral to Megan at [facility]. [facility] report that they can accept the patient for intermediate for the catheter care. The patient's sister, Juana, did request that NISHA follow up with [facility] and [facility] tomorrow to see if they have a bed available. Juana reports that she will contact the patient when she gets home. The patient was in need of transportation back home. NISHA contacted [facility] and provided the patient with a taxi voucher back home. The patient had also mentioned [facility]. The patient's sister had reported that the patient had been there in the past. NISHA had faxed a referral to [place]. The patient then informed NISHA that she would not want to go there. NISHA will need to follow up with those facilities tomorrow, 10/15, and update the patient and patient's sister. The patient's sister also requested that NISHA find out when the patient's next urology appointment is and inform her. NISHA did make an APS report. Intake ID#[id number]
[2018-10-14 18:03] VITALS: BP 116/89; PULSE 77
--- NOTE | 2018-10-15 10:32 | NUR ---
NISHA contacted Dr. Drummond office to inquire when the patient's urology appointment is. That appointment is , 10/17, at 1100. NISHA also followed up with Daja at [facility] and Bladimir at [facility]. Daja reports that after further review, they have declined the patient. Bladimir reports that he is still working on opening up a bed and their availability. NISHA provided Bladimir with the patient's DPOA-HC's (Pradeep) and her case repairer (Demian) phone numbers. NISHA contacted the patient's case manger at [facility] [employer], to update and to inform of when the patient's urology appointment is. NISHA then contacted and updated the patient's sister.
--- NOTE | 2018-10-15 11:40 | NUR ---
Megan, at [facility], contacted NISHA to inform that they are actually swamped for the next couple of days and that the earliest that they would be able to see the patient for the catheter care would be this or Sunday. Megan informed NISHA that it might be best for NISHA to send a referral to another home health agency for the catheter care. Megan reports that they will still continue the private duty services with the patient. NISHA then contacted Sudarshan at [facility] to inquire if they would be able to accept and see a new patient today. Sudarshan reports that they are swamped today also, but that they may be able to. Sudarshan reports that they would for sure be able to see the patient tomorrow, 10/16. NISHA then contacted the patient's sister. The patient's sister reports that she would feel more comfortable if an agency would be able to come out to see the patient tomorrow and she was agreeable for NISHA to send a referral. NISHA then updated Sudarshan at [facility] and faxed the referral. NISHA attempted to contact the patient's porter sample case, Demian, to update. NISHA left a voicemail.
--- NOTE | 2018-10-15 13:49 | NUR ---
Roshan, at [facility], reports that they can accept the patient for services at that they can be out at the patient's home tomorrow morning. Roshan reports that they will contact and touch base with the patient's family. NISHA also attempted to contact the patient's community case manager again to update, via email.
--- NOTE | 2018-10-15 15:54 | NUR ---
Bladimir, at [facility], reports that they still do not have an open bed for today; but that he will keep working on getting a room available for the patient. SW contacted the patient's sister, Juana, to update and informed her how [facility] with visit the patient tomorrow morning. The patient's sister verbalized understanding and was in agreeance to the plan.
== END 2018-10-14 18:05 | disposition home or self-care (01) ==
LOC: COL.ER 07:44
DX: T83.098A Other mechanical complication of other urinary catheter, initial encounter (principal); E11.9 Type 2 diabetes mellitus without complications; E78.5 Hyperlipidemia, unspecified; I11.0 Hypertensive heart disease with heart failure; Z79.4 Long term (current) use of insulin; Z79.82 Long term (current) use of aspirin

== ENCOUNTER 2018-10-17 11:17 | Emergency (ER) | payer MEDICARE, MEDICAID ==
[2008-10-16 17:36] VITALS: BP 118/70
[~2018-10-17] VITALS: Ht 170.2 cm; Wt 104.5 kg
[2018-10-17 11:21] VITALS: BP 132/98; TEMP 98
[2018-10-17 12:47] LABS: COLLECTION METHOD CLEAN CATCH
[2018-10-17 12:52] LABS: PH 5 (5-8); SQUAMOUS EPITHELIAL None Seen /hpf; URINE APPEARANCE Clear; URINE BACTERIA Rare /hpf; URINE BILIRUBIN Negative (NEGATIVE); URINE BLOOD Negative (NEGATIVE); URINE COLOR Yellow; URINE GLUCOSE Negative (NEGATIVE); URINE KETONE Negative (NEGATIVE); URINE LEUKOCYTE ESTERASE Negative (NEGATIVE); URINE NITRATE Negative (NEGATIVE); URINE PROTEIN(semi-quant) Negative (NEGATIVE); URINE RBC 0-2 /hpf; URINE UROBILINOGEN Negative (NEGATIVE)
[2018-10-17 12:55] VITALS: PULSE 84
--- NOTE | 2018-10-17 13:34 | NUR ---
NISHA and NISHA tang responded to ED consult. The patient had come to the ED after accidently stepping on her catheter bag and her catheter came out. NISHA and NISHA tang then met with the patient and the patient's friend, Kirti. The patient had recently discharged from the ED on Sunday, 10/14, and was set up with home health for catheter care through [facility]. NISHA contacted Dylan to find out how their visit with the patient went. Dylan reports that they were going to reach out to the nurse that visited her and then contact NISHA back. The patient's friend reports that the patient has had more confusion lately and had difficulties with coordination in her hands. Kirti states that she is the middle person between her sister (Wilbert) and the patient's sister (Juana). Wilbert and Juana are the patient's DPOA-HC. Kirti reports that they have been waiting to hear back from [facility] on whether they have a bed and can accept the patient. NISHA then contacted Bladimir at [facility] [place]. Bladimir came and visited with the patient and Kirti. The patient had then been discharged from ED. NISHA followed up with the patient and patient's friend, Kirti. The patient reports that [facility]. NISHA contacted and informed Baldimir at [facility] [place]. Bladimir requested the patient's discharge summary and records from the patient's hospital stay in September. NISHA faxed that information to him. Bladimir reports that his clinical team will need to review that information and they will need to speak to the patient's PCP. NISHA informed the patient and Kirti. NISHA also provided Kirti with [facility]'s address and Bladimir's phone number. The patient discharged back home, awaiting [facility]'s acceptance. Transportation was provided by her friend, Kirti.
== END 2018-10-17 13:00 | disposition home or self-care (01) ==
LOC: COL.ER 11:17
PROVIDERS: Family Medicine
DX: R33.9 Retention of urine, unspecified (principal); E11.9 Type 2 diabetes mellitus without complications; I10 Essential (primary) hypertension; I50.9 Heart failure, unspecified